=== PATIENT | male | born 1990 | race Caucasian/White ===

== ENCOUNTER 2018-02-13 14:08 | Emergency (ER) | payer BC ==
[~2018-02-13] VITALS: Ht 180.3 cm; Wt 85.0 kg
[2018-02-13 14:17] VITALS: BP 167/90; PULSE 66; RESP 16; TEMP 98.1; O2SAT 99
--- NOTE | 2018-02-13 16:03 | PD ---
HPI Chief Complaint: Foreign Body Time Seen by Provider: 15:58 Travel History International Travel<30 days: No Contact w/Intl Traveler<30days: No Traveled to known affect area: No History of Present Illness HPI Patient states that he was imaging fish at 1 of those Fishbone stuck on his on the way down and he felt this scratchy throat sensation. Patient was able to tolerate his own secretions. Patient gargled with peroxide and was able to tolerate that. Initially he felt 7 out of 10 sensation on the right side of his oropharynx. However now it is down to 2 out of 10, he feels that it was dislodged and he swallowed it now. This. Patient denies any associated factors such as fever, rash, nausea, vomiting, diarrhea, abdominal pain, chest pain, back pain, flank pain, hematuria/dysuria/frequency. Denies any significant drug allergies Denies any significant past medical or surgical history PFSH Past Medical History Tetanus Vaccination: Unknown Influenza Vaccination: No ?: Not Social History Alcohol Use: Yes (daily) Tobacco Use: Yes (1ppd) Substance Use: Yes (mj) Allergies-Medications (Allergen,Severity, Reaction): Coded Allergies: No Known Allergies (Unverified , 02/13/18) Reported Meds & Prescriptions Reported Meds & Active Scripts Active No Active Prescriptions or Reported Medications Review of Systems General / Constitutional: No: Fever Eyes: No: Visual changes HENT: Positive: Sore Throat Cardiovascular: No: Chest Pain or Discomfort Respiratory: No: Shortness of Breath Gastrointestinal: No: Abdominal Pain Genitourinary: No: Dysuria Musculoskeletal: No: Pain Skin: No Rash Neurologic: No: Weakness Psychiatric: No: Depression Endocrine: No: Polydipsia Hematologic/Lymphatic: No: Easy Bruising Physical Exam Narrative GENERAL: SKIN: Warm and dry. HEAD: Atraumatic. Normocephalic. EYES: Pupils equal and round. No scleral icterus. No injection or drainage. ENT: No nasal bleeding or discharge. Mucous membranes pink and moist. Right side of her oropharynx showed some slight erythema and an abrasion noted is about 5 mm in distance, no exudates NECK: Trachea midline. No JVD. No lymphadenopathy CARDIOVASCULAR: Regular rate and rhythm. RESPIRATORY: No accessory muscle use. Clear to auscultation. Breath sounds equal bilaterally. GASTROINTESTINAL: Abdomen soft, non-tender, nondistended. Hepatic and splenic margins not palpable. MUSCULOSKELETAL: Extremities without clubbing, cyanosis, or edema. No obvious deformities. NEUROLOGICAL: Awake and alert. No obvious cranial nerve deficits. Motor grossly within normal limits. Five out of 5 muscle strength in the arms and legs. Normal speech. PSYCHIATRIC: Appropriate mood and affect; insight and judgment normal. Data Data Last Documented VS Vital Signs Date Time Temp Pulse Resp B/P (MAP) Pulse Ox O2 Delivery O2 Flow Rate FiO2 02/13/18 14:17 98.1 66 16 167/90 (115) 99 MDM Medical Decision Making Medical Screen Exam Complete: Yes Emergency Medical Condition: Yes Medical Record Reviewed: Yes Differential Diagnosis Oropharyngeal abrasion versus retained foreign body versus pharyngitis Narrative Course Clinically the patient does not have any evidence of pharyngitis nor of any retained foreign body, however it was noted that the patient had a small abrasion noted off to the right side and this may be what is causing the patient sensation of a foreign body. Diagnosis Primary Impression: Oropharyngeal abrasion noninfected Patient Instructions: General Instructions Additional Instructions: Here recommended to gargle with peroxide twice a day regularly over the next 5- 7 days to avoid a secondary infection. Scripts No Active Prescriptions or Reported Meds Disposition: 01 DISCHARGE HOME Condition: Stable Sen Lacey MD Feb 13, 2018 16:03
[2018-02-13] MEDS ORDERED: LIDOCAINE VISCOUS 2% SOLN 15 ML UDC PO ONE (16:15)
[2018-02-13] MEDS ORDERED: ALUMINUM/MAGNESIUM/SIMETH 30 ML CUP PO ONE (16:15)
[2018-02-14] MEDS ORDERED: PERI0.126 SWISH-SPIT (20:06)
[2018-02-14] MEDS ORDERED: AUGM875T3 PO (20:06)
== END 2018-02-13 16:50 | disposition home or self-care (01) ==
LOC: PHED 14:08
DX: S10.11XA Abrasion of throat, initial encounter (principal); F17.210 Nicotine dependence, cigarettes, uncomplicated
CPT/HCPCS: 99281

== ENCOUNTER 2018-02-14 18:42 | Emergency (ER) | payer BC ==
[~2018-02-14] VITALS: Ht 180.3 cm; Wt 85.0 kg
[2018-02-14 18:49] VITALS: BP 153/66; PULSE 81; RESP 16; TEMP 98.7; O2SAT 98
--- NOTE | 2018-02-14 19:19 | PD ---
HPI Chief Complaint: Foreign Body Time Seen by Provider: 19:03 Travel History International Travel<30 days: No Contact w/Intl Traveler<30days: No Traveled to known affect area: No History of Present Illness HPI 27 year old male presents to the emergency department for evaluation of possible fish bone stuck in his throat for 2 days. Patient states that 2 days ago, he was eating grouper with bones in it. He felt like a bone got stuck in his throat. He researched home remedies and was eating bread, marshmallows, peanut butter to try to relieve the foreign body. He states he came to the emergency department yesterday, but was starting to feel better and an abrasion was noted which was thought to be the reason for his discomfort. He states that today, he pulled out a piece of fish bone from under his tongue and states that he noticed drainage after. He states that he may still have some fish bone in his throat. He is handling his secretions. He states his pain is gone at this time. He has no chronic medical problems and takes no prescribed medications. Moderate severity. PFSH Past Medical History Medical History: Denies Significant Hx Diminished Hearing: No Immunizations Current: Yes Tetanus Vaccination: Unknown Influenza Vaccination: No Past Surgical History Oral Surgery: Yes (JUAN) Social History Alcohol Use: Yes (6 PLUS DAILY) Tobacco Use: Yes (1ppd) Substance Use: Yes (mj) Allergies-Medications (Allergen,Severity, Reaction): Coded Allergies: No Known Allergies (Unverified , 02/14/18) Reported Meds & Prescriptions Reported Meds & Active Scripts Active No Active Prescriptions or Reported Medications Review of Systems Except as stated in HPI: all other systems reviewed are Neg Physical Exam Narrative GENERAL: Well-nourished, well-developed male patient, ambulatory. Afebrile. SKIN: Focused skin assessment warm/dry. HEAD: Normocephalic. Atraumatic. ENT: Mucosa pink and moist. No erythema or exudates. No uvular edema. No uvular , palatal, or tonsillar deviation. Airway patent. No abnormalities seen under her tongue. No evidence of foreign body or infection. No foreign body felt to palpation. No foreign body seen on direct examination. Nasal turbinates appear normal without nasal blood, purulent drainage or septal hematoma. Bilateral tympanic membranes clear without erythema or perforation. EYES: No scleral icterus. No injection or drainage. NECK: Supple, trachea midline. No JVD or lymphadenopathy. CARDIOVASCULAR: Regular rate and rhythm without murmurs, gallops, or rubs. RESPIRATORY: Breath sounds equal bilaterally. No accessory muscle use. Lung sounds are clear to auscultation peer GASTROINTESTINAL: Abdomen soft, non-tender, nondistended. MUSCULOSKELETAL: No cyanosis, or edema. BACK: Nontender without obvious deformity. No CVA tenderness. Data Data Last Documented VS Vital Signs Date Time Temp Pulse Resp B/P (MAP) Pulse Ox O2 Delivery O2 Flow Rate FiO2 02/14/18 18:49 98.7 81 16 153/66 (95) 98 Orders Orders Soft Tissue Neck (02/14/18 ) [facility] Medical Decision Making Medical Screen Exam Complete: Yes Emergency Medical Condition: Yes Medical Record Reviewed: Yes Interpretation(s) Last Impressions Soft Tissue Neck X-Ray 02/14/18 0000 Signed Impressions: CONCLUSION: No definite foreign body Differential Diagnosis Abrasion versus foreign body versus pharyngitis Narrative Course 27-year-old male presents to the emergency department for possibility of fishbone in his throat. He was seen yesterday for the same and no evidence of retained fishbone was noted. X-ray of the soft tissue neck is ordered and pending. X-ray shows no definite foreign body. I discussed the case with my attending physician, Dr. Paredes. He recommends Peridex oral solution, Augmentin and follow-up with ENT or GI. I discussed this with the patient who verbalizes agreement. He is return here for any acute worsening of symptoms. Diagnosis Primary Impression: Abrasion of oropharynx Qualified Codes: S10.11XD - Abrasion of throat, subsequent encounter Referrals: Eb Degroot MD, Harsh Verdhan MD Patient Instructions: Abrasion (ED), General Instructions Additional Instructions: Use Peridex oral solution as directed. Take Augmentin as directed until gone. Follow-up with either ENT or GI for further evaluation and examination. Our ENT institutional custodian today is Dr. Degroot. The GI institutional custodian today is Dr. Jean. Return to the emergency department for any acute worsening of symptoms Med/Other Pt SpecificInfo: Prescription(s) given Scripts Amoxicillin-Clavulanate (Augmentin) 875-125 Mg Tab 1 TAB PO BID for Infection for 10 Days, #20 TAB 0 Refills Prov: Joann Anand 02/14/18 Chlorhexidine Gluconate (Mouth) Liq (Peridex Liq) 0.12% Soln 15 ML SWISH-SPIT BID, #473 ML 0 Refills Prov: Joann Anand 02/14/18 Disposition: 01 DISCHARGE HOME Condition: Stable Joann Anand Feb 14, 2018 19:19
--- NOTE | 2018-02-14 19:44 | RADRPT ---
EXAM DATE: 02/14/2018 7:31 PM EDT AGE/SEX: 27 years / Male INDICATIONS: Evaluate for foreign body. Right esophageal pain after patient swallowed fish bone 2 da ys ago CLINICAL DATA: This is the patient's initial encounter. Patient reports that signs and symptoms have been present for 2 days and indicates a pain score of 5/10. MEDICAL/SURGICAL HISTORY: None. None. COMPARISON: No prior exams available for comparison. FINDINGS: Two-view examination of the soft tissues of the neck demonstrates the hypopharyngeal airway to have a grossly normal configuration. The trachea is midline. This spaces are maintained. No radiopaque fo reign bodies are seen. CONCLUSION: No definite foreign body Electronically signed by: Jim Griffin MD 02/14/2018 7:42 PM EDT
[2018-02-14] MEDS ORDERED: PERI0.126 SWISH-SPIT (20:06)
[2018-02-14] MEDS ORDERED: AUGM875T3 PO (20:06)
== END 2018-02-14 20:12 | disposition home or self-care (01) ==
LOC: PHEFT 18:42
DX: T18.8XXD Foreign body in other parts of alimentary tract, subsequent encounter (principal)
CPT/HCPCS: 70360; 99283